=== PATIENT | male | born 1970 | race Hispanic/Latino ===

== ENCOUNTER 2019-08-23 11:48 | Emergency (ER) | payer OTHER ==
[2019-08-23] MEDS ORDERED: TETANUS/DIPHTHERIA TOXOID [ADULT] 0.5 ML VIAL IM ONE (12:33)
== END 2019-08-23 13:54 | disposition home or self-care (01) ==
LOC: EDH 11:48
DX: S40.211A Abrasion of right shoulder, initial encounter (principal); S60.512A Abrasion of left hand, initial encounter; S60.511A Abrasion of right hand, initial encounter; S50.311A Abrasion of right elbow, initial encounter; S70.211A Abrasion, right hip, initial encounter; S80.211A Abrasion, right knee, initial encounter; V18.0XXA Pedal cycle driver injured in noncollision transport accident in nontraffic accident, initial encounter; Y93.55 Activity, bike riding; Y92.89 Other specified places as the place of occurrence of the external cause; Y99.8 Other external cause status
CPT/HCPCS: 73030; 73502; 90471; 90714

== ENCOUNTER 2020-09-24 16:11 | Emergency (ER) | payer OTHER ==
[2020-09-24] MEDS ORDERED: LIDOCAINE HCL 1% 20 ML VIAL ONE ×2 (17:07→17:14)
== END 2020-09-24 17:55 | disposition home or self-care (01) ==
LOC: EDH 16:11
DX: S61.211A Laceration without foreign body of left index finger without damage to nail, initial encounter (principal); S61.215A Laceration without foreign body of left ring finger without damage to nail, initial encounter; X58.XXXA Exposure to other specified factors, initial encounter; Y93.89 Activity, other specified; Y92.830 Public park as the place of occurrence of the external cause; Y99.8 Other external cause status
CPT/HCPCS: 12042

== ENCOUNTER 2022-03-06 18:58 | Emergency (ER) | payer OTHER ==
[~2022-03-06] VITALS: Ht 185.4 cm; Wt 93.4 kg
[2022-03-06] MEDS ORDERED: KETO5DRO39 OD (20:12)
[2022-03-06] MEDS ORDERED: MOXIOS OD (20:12)
[2022-03-06] MEDS ORDERED: TETRACAINE HCL 0.5% 4 ML OPHTH SOLN OP SCH (20:15)
[2022-03-06 20:25] VITALS: BP 128/70
[2022-03-06] MEDS ORDERED: MOXIFLOXACIN HCL 0.5% 3ML DROPS OD SCH (20:30)
[2022-03-06] MEDS ORDERED: CIPROFLOXACIN HCL 0.3% 2.5ML DROPS OD SCH (20:30)
== END 2022-03-06 20:29 | disposition home or self-care (01) ==
LOC: EDH 18:58
DX: H10.89 Other conjunctivitis (principal)

== ENCOUNTER → 2022-03-26 | Outpatient (CLI) | payer OTHER ==
[~2022-03-26] MED LIST: KETO5DRO39 OD; MOXIOS OD
[2022-03-26 09:49] LABS: BASOPHILS % (AUTO) 0.2 % (0.0-5.0); EOSINOPHILS % (AUTO) 0.2 % (0.0-8.0); HEMATOCRIT 42.1 % (42-54); LYMPHOCYTES % (AUTO) 21.1 % (21.0-51.0); MEAN CORPUSCULAR HEMOGLOBIN 32.7 pg (27.0-33.0); MEAN CORPUSCULAR HGB CONC 35.2 g/dL (32.0-36.0); MEAN CORPUSCULAR VOLUME 93.1 fL (79-99); MONOCYTES % (AUTO) 8.8 % (3.0-13.0); NEUTROPHILS % (AUTO) 69.5 % (40.0-77.0); PLATELET COUNT (AUTO) 238 K/uL (130-400); RED BLOOD CELL COUNT(AUTO) 4.52 MIL/uL (4.50-6.20); RED CELL DISTRIBUTION WIDTH 13.3 % (11.0-15.5); WHITE BLOOD COUNT (AUTO) 8.1 K/uL (4.8-10.8)
[2022-03-26 09:56] LABS: HEMOGLOBIN A1C 5.3 % (4.0-6.0)
[2022-03-26 10:13] LABS: ALBUMIN 4.3 g/dL (3.5-5.0); BILIRUBIN,TOTAL 0.9 mg/dL (0.2-1.0); CREATININE 0.8 mg/dL (0.5-1.5); POTASSIUM 3.8 mmol/L (3.5-5.1); T4 (THYROXINE) 8.4 ug/dL (4.7-13.3); THYROID STIMULATING HORMONE 0.95 uIU/mL (0.36-3.74)
== END | disposition home or self-care (01) ==
LOC: LAB 08:19
PROVIDERS: ATTEND Family Medicine
DX: Z00.00 Encounter for general adult medical examination without abnormal findings (principal); E55.9 Vitamin D deficiency, unspecified; E29.1 Testicular hypofunction; E78.5 Hyperlipidemia, unspecified
CPT/HCPCS: 36415; 80053; 80061; 82306; 82670; 83036; 84153; 84403; 84436; 84443; 85025

== ENCOUNTER → 2023-01-22 | Outpatient (CLI) | payer OTHER ==
[2023-01-22 08:22] LABS: BASOPHILS % (AUTO) 0.5 % (0.0-5.0); EOSINOPHILS % (AUTO) 1.2 % (0.0-8.0); LYMPHOCYTES % (AUTO) 33.1 % (21.0-51.0); MEAN CORPUSCULAR HEMOGLOBIN 32.5 pg (27.0-33.0); MEAN CORPUSCULAR HGB CONC 35.5 g/dL (32.0-36.0); MEAN CORPUSCULAR VOLUME 91.6 fL (79-99); MONOCYTES % (AUTO) 10.7 % (3.0-13.0); NEUTROPHILS % (AUTO) 54.5 % (40.0-77.0); PLATELET COUNT (AUTO) 255 K/uL (130-400); RED BLOOD CELL COUNT(AUTO) 4.15 MIL/uL (4.50-6.20); RED CELL DISTRIBUTION WIDTH 12.9 % (11.0-15.5)
[2023-01-22 08:40] LABS: CREATININE 1.1 mg/dL (0.5-1.5); POTASSIUM 3.7 mmol/L (3.5-5.1); THYROID STIMULATING HORMONE 2.78 uIU/mL (0.36-3.74); TOTAL PROTEIN, SERUM 7.5 g/dL (6.0-8.3)
[2023-01-22 08:54] LABS: HEMOGLOBIN A1C 5.1 % (4.0-6.0)
== END | disposition home or self-care (01) ==
LOC: LAB 10:00
PROVIDERS: ATTEND Family Medicine
DX: E29.1 Testicular hypofunction (principal); E55.9 Vitamin D deficiency, unspecified; R53.83 Other fatigue; R68.82 Decreased libido; R89.1 Abnormal level of hormones in specimens from other organs, systems and tissues
CPT/HCPCS: 36415; 80053; 80061; 82306; 82626; 82670; 83036; 84153; 84270; 84402; 84403; 84443; 85025

== ENCOUNTER → 2024-02-26 | Outpatient (CLI) | payer OTHER ==
[~2024-02-26] MED LIST changes: -KETO5DRO39 OD; +KETO5DRO40 OD
[2024-02-26 06:59] LABS: BASOPHILS # (AUTO) 0.02 K/uL (0.00-0.20); BASOPHILS % (AUTO) 0.4 % (0.0-5.0); EOSINOPHILS # (AUTO) 0.06 K/uL (0.00-0.70); EOSINOPHILS % (AUTO) 1.3 % (0.0-8.0); HEMATOCRIT 39.3 % (42-54); IMMATURE GRANULOCYTE ABSOLUTE 0.01 K/uL (0-1); LYMPHOCYTES % (AUTO) 40.9 % (21.0-51.0); MEAN CORPUSCULAR HEMOGLOBIN 32.4 pg (27.0-33.0); MEAN CORPUSCULAR HGB CONC 35.1 g/dL (32.0-36.0); MEAN CORPUSCULAR VOLUME 92.3 fL (79-99); MONOCYTES # (AUTO) 0.5 K/uL (0.1-1.0); MONOCYTES % (AUTO) 9.8 % (3.0-13.0); NEUTROPHILS # (AUTO) 2.3 K/uL (1.8-7.7); NEUTROPHILS % (AUTO) 47.4 % (40.0-77.0); PLATELET COUNT (AUTO) 224 K/uL (130-400); RED BLOOD CELL COUNT(AUTO) 4.26 MIL/uL (4.50-6.20); RED CELL DISTRIBUTION WIDTH 12.9 % (11.0-15.5); WHITE BLOOD COUNT (AUTO) 4.8 K/uL (4.8-10.8)
[2024-02-26 07:07] LABS: HEMOGLOBIN A1C 5.2 % (4.0-6.0)
[2024-02-26 07:35] LABS: ALBUMIN 3.8 g/dL (3.5-5.0); BILIRUBIN,TOTAL 0.7 mg/dL (0.2-1.0); POTASSIUM 4.2 mmol/L (3.5-5.1); THYROID STIMULATING HORMONE 2.82 uIU/mL (0.36-3.74); TOTAL PROTEIN, SERUM 7.2 g/dL (6.0-8.3); URIC ACID 4.6 mg/dL (2.6-7.2)
[2024-02-26 08:03] LABS: ERYTHROCYTE SEDIMENTATION RATE 5 MM/HR (0-20)
== END | disposition home or self-care (01) ==
LOC: LAB 06:17
PROVIDERS: ATTEND Family Medicine
DX: Z00.00 Encounter for general adult medical examination without abnormal findings (principal); Z12.11 Encounter for screening for malignant neoplasm of colon; M49.86 Spondylopathy in diseases classified elsewhere, lumbar region; E29.1 Testicular hypofunction; M10.9 Gout, unspecified
CPT/HCPCS: 36415; 80053; 80061; 82306; 82670; 83036; 84153; 84154; 84443; 84550; 85025; 85651; 86038; 86140; 86200; 86215; 86235; 86812

== ENCOUNTER → 2024-04-07 | Outpatient (CLI) | payer OTHER | END | disposition home or self-care (01) | LOC: LAB 03:57 | PROVIDERS: ATTEND Family Medicine | DX: E29.1 Testicular hypofunction (principal); R79.89 Other specified abnormal findings of blood chemistry | CPT/HCPCS: 36415; 82626; 82670; 84270; 84402; 84403 ==

== ENCOUNTER 2025-03-29 05:50 | Day surgery (SDC) | payer OTHER ==
[~2025-03-29] VITALS: Ht 185.4 cm; Wt 95.3 kg
[2025-03-29] VITALS (10 sets, daily range): BP systolic 107–135; BP diastolic 55–83; PULSE 55–66; RESP 15–18; TEMP 97.3–99.5
[2025-03-29] MEDS ORDERED: GLUC-252 PO (06:25)
[2025-03-29] MEDS ORDERED: MULT-1367 PO (06:25)
[2025-03-29] MEDS: 0.9%NACL 1000ML 1,000 ML IV ONE (06:40)
[2025-03-29] MEDS ORDERED: proPOFol 10 MG/ML 20ML VIAL IV ONE ×2 (07:41→07:52)
[2025-03-29] MEDS ORDERED: LIDOCAINE HCL 1% 20 ML VIAL ONE (07:42)
== END 2025-03-29 08:50 | disposition home or self-care (01) ==
LOC: DAH 05:50 → ENDO 05:50
PROVIDERS: ATTEND Internal Medicine Gastroenterology
DX: Z12.11 Encounter for screening for malignant neoplasm of colon (principal); D12.8 Benign neoplasm of rectum; K63.5 Polyp of colon
CPT/HCPCS: 45380; 45385; J7030; J2704 ×2; J3490